=== PATIENT | male | born 1960 | race Caucasian/White ===

== ENCOUNTER 2017-12-10 16:00 | Inpatient (IN) | payer MEDICARE, OTHER ==
[~2017-12-10] VITALS: Ht 182.9 cm; Wt 76.2 kg
[2017-12-10 16:00] VITALS: BP 135/93
--- NOTE | 2017-12-10 16:35 | NUR ---
GPS/RN RECEIVED PT VIA AMBULANCE. DR GARCIA CALLED FOR THE ORDERS. PT REFUSED MRSA SWAB AND FULL BODY ASSESSMENT.
[2017-12-10] MEDS ORDERED: FOLI1TAB16 PO (16:44)
[2017-12-10] MEDS ORDERED: THIA100T13 PO (16:44)
[2017-12-10] MEDS ORDERED: OLAN20TA3 PO (16:44)
[2017-12-10] MEDS ORDERED: LORA2TAB PO (16:44)
[2017-12-10] MEDS ORDERED: MULT-213 PO (16:44)
[2017-12-10 17:00] VITALS: BP 121/81
[2017-12-10] MEDS ORDERED: MAG HYDROX/AL HYDROX/SIMETH 30 ML UDC PO PRN (17:00)
[2017-12-10] MEDS ORDERED: ACETAMINOPHEN 325 MG TABLET PO PRN (17:00)
[2017-12-10] MEDS ORDERED: MAGNESIUM HYDROXIDE 30 ML UDC PO PRN (17:00)
--- NOTE | 2017-12-10 17:09 | NUR ---
GPS RN ADMITTING NOTE: PATIENT 57 Y/O ADMITTED FROM [facility], ON 5150 HOLD FOR DTS/ DTO . PER HOLD RAPID CALL OF MALE ON SIDE OF ROAD WAVING A STICK AT [place], WAS SEEN IN MIDDLE OF STRESS. PT SAID HE WAS SCHIZOPHRENIC AND HEARING VOICES .UPON FACE TO FACE ASSESSMENT PT AGGRESSIVE ANGRY , UNCOOPERATIVE, REFUSED TO SIGN ADMITTING PAPER REFUSED MRSA NARES SWAB, REFUSED SKIN ASSESSMENT. PT HOMELESS UNABLE TO PROVIDE ANY HISTORY PT POOR HISTORIAN , A/OX3 AMBULATORY SELF CARE. DR GARCIA NOTIFIED WITH ORDERS, BELONGINGS CHECKED WILL CONTINUE MONITORING.
--- NOTE | 2017-12-10 17:41 | NUR ---
GPS RN NOTE: Lizabeth CHAWLA NOTIFIED OF ADMISSION TO RECONCILED HOME MEDICATIONS.
--- NOTE | 2017-12-10 19:30 | NUR ---
RN NOTES RECEIVED PATIENT AMBULATING IN THE HALLWAYS WITH A STEADY GAIT. AO X 3, ABLE TO MAKE NEEDS KNOWN. NO ACUTE DISTRESS NOTED. DENIES ANY PAIN AT THIS TIME. PATIENT AGITATED; STATING THAT HE IS IN THE HOSPITAL, BECAUSE DOCTORS WANT TO "DOPE" HIM UP. PATIENT WAS GIVEN REASSURANCE THAT HE IS SAFE. PATIENT WAS ENCOURAGED TO REST IN BED; JUICE WAS OFFERED . PATIENT WAS ABLE TO CALM DOWN A LITTLE BIT. SAFETY REMINDERS GIVEN. ON LOW BED WITH BILATERAL UPPER SIDE RAILS UP. PATIENT EDUCATED ON USE OF CALL BUTTON. WILL CONTINUE TO MONITOR.
[2017-12-10 20:00] VITALS: BP 121/80
[2017-12-10] MEDS: TEMAZEPAM 7.5 MG CAPSULE PO PRN (22:29)
[2017-12-11] MEDS: clonazePAM 0.5 MG TABLET PO PRN ×2 (03:43→17:14)
--- NOTE | 2017-12-11 06:24 | NUR ---
RN NOTES PATIENT ASLEEP IN BED, RESPIRATIONS EVEN. NO SIGNS OF PAIN NOTED. NEEDS ATTENDED. SAFETY PRECAUTIONS AND COMFORT MEASURES IN PLACE. WILL GIVE REPORT TO DAY SHIFT FOR CONTINUITY OF CARE.
[2017-12-11 08:03] VITALS: BP 113/72
[2017-12-11] MEDS: NICOTINE PATCH (21MG) 21 MG PATCH.TD24 TD SCH (08:17)
[2017-12-11 09:58] LABS: ALBUMIN 3.3 g/dL (3.4-5.0); BILIRUBIN,TOTAL 0.5 mg/dL (0.2-1.0); CALCIUM, SERUM 9.2 mg/dL (8.5-10.1); CREATININE 0.8 mg/dL (0.6-1.3); POTASSIUM 4.5 mmol/L (3.5-5.1)
[2017-12-11 10:03] LABS: CHOLESTEROL 118 mg/dL (<200); HDL CHOLESTEROL 43 mg/dL (40-60); LDL 82 mg/dL (0-99); TRIGLYCERIDES 93 mg/dL (30-150)
[2017-12-11 16:10] VITALS: BP 150/83
[2017-12-11 20:19] VITALS: BP 107/56
[2017-12-11] MEDS: TEMAZEPAM 7.5 MG CAPSULE PO PRN (21:48)
[2017-12-11] MEDS ORDERED: OLANZAPINE 5 MG/TAB.RAPDIS PO SCH (22:00)
[2017-12-12 08:00] VITALS: BP 101/54
[2017-12-12] MEDS: NICOTINE PATCH (21MG) 21 MG PATCH.TD24 TD SCH (09:00)
[2017-12-12] MEDS: clonazePAM 0.5 MG TABLET PO PRN (10:08)
--- NOTE | 2017-12-12 10:10 | NUR ---
GPS/RN PATIENT IS ANXIOUS, AGITATED, YELLING AND THREATENING STAFF, ADMINISTERED KLONOPIN 1 MG, WILL CONTINUE TO MONITOR.
--- NOTE | 2017-12-12 10:37 | NUR ---
Initial Discharge Plan: Pt is homeless and stated "that is where I want to be." SW will form a safe and proper discharge in collaboration with MD.
[2017-12-12 16:00] VITALS: BP 135/101
[2017-12-12 20:03] VITALS: BP 132/82
[2017-12-12] MEDS ORDERED: OLANZAPINE 5 MG/TAB.RAPDIS PO SCH (22:00)
[2017-12-12] MEDS: TEMAZEPAM 7.5 MG CAPSULE PO PRN (22:37)
[2017-12-13 08:00] VITALS: BP 112/73
[2017-12-13] MEDS: clonazePAM 0.5 MG TABLET PO PRN (09:29)
[2017-12-13] MEDS: NICOTINE PATCH (21MG) 21 MG PATCH.TD24 TD SCH (09:30)
[2017-12-13 16:00] VITALS: BP 120/81
[2017-12-13 20:29] VITALS: BP 130/74
[2017-12-13] MEDS: OLANZAPINE 5 MG/TAB.RAPDIS PO SCH (21:15)
[2017-12-13] MEDS: TEMAZEPAM 7.5 MG CAPSULE PO PRN (23:43)
[2017-12-14 08:00] VITALS: BP 116/76
[2017-12-14] MEDS: clonazePAM 0.5 MG TABLET PO PRN ×2 (08:09→13:40)
[2017-12-14] MEDS: NICOTINE PATCH (21MG) 21 MG PATCH.TD24 TD SCH (08:09)
[2017-12-14 08:23] VITALS: BP 116/76
[2017-12-14 16:04] VITALS: BP 122/68
[2017-12-14 20:00] VITALS: BP 113/60
[2017-12-14] MEDS: OLANZAPINE 5 MG/TAB.RAPDIS PO SCH ×4 (21:27→23:49)
--- NOTE | 2017-12-14 21:33 | NUR ---
PATIENT REFUSED HIS OLANZAPINE 20 MG PO, STATED, " I DON'T NEED IT, I'M FINE."
[2017-12-15 08:22] VITALS: BP 126/76
[2017-12-15] MEDS: clonazePAM 0.5 MG TABLET PO PRN (08:54)
--- NOTE | 2017-12-15 08:57 | NUR ---
GPS/RN-NOTES NOTED PATIENT PACING IN HIS ROOM AND IN THE HALLWAY TALKING TO SELF VERY LOUD. REDIRECTED AND OFFERED KLONOPIN AND AGREES. KLONOPIN 1MG P.O GIVEN PRN ORDER. WILL CONT. MONITORING FOR SAFETY AND BEHAVIOR. PATIENT REFUSED NICOTINE PATCH. STATED" YOU CAN NOT STOP ME FROM SMOKING" EXPLAINED HOSPITAL POLICIES OF NOT A SMOKING FACILITY BUT PATIENT STILL REFUSE. OFFERED X3.
[2017-12-15] MEDS: NICOTINE PATCH (21MG) 21 MG PATCH.TD24 TD SCH (09:00)
[2017-12-15] MEDS: OLANZAPINE 5 MG/TAB.RAPDIS PO SCH ×2 (15:05→20:07)
[2017-12-15 16:00] VITALS: BP 124/83
[2017-12-15] MEDS ORDERED: OLANZAPINE 5 MG/TAB.RAPDIS PO SCH (17:00)
[2017-12-15 20:00] VITALS: BP 125/72
[2017-12-16 08:18] VITALS: BP 120/69
[2017-12-16] MEDS: OLANZAPINE 5 MG/TAB.RAPDIS PO SCH ×2 (08:40→21:00)
[2017-12-16] MEDS: NICOTINE PATCH (21MG) 21 MG PATCH.TD24 TD SCH (09:00)
[2017-12-16 16:00] VITALS: BP 124/64
--- NOTE | 2017-12-16 18:26 | NUR ---
RN-CO: Patient is intimidating staff, threatening physical harm to RNs,CNAs , cursing, screaming and trying to AWOL. Paged Dr Bassett. Patient also refused PO anti agitation. Awaiting to call back.
--- NOTE | 2017-12-16 18:31 | NUR ---
RN-CO: Patient also hit the wall.
--- NOTE | 2017-12-16 18:36 | NUR ---
RN-CO: DR URIBE CALLED BACK AND ORDERED ATIVAN 2MG IM, HALDOL 10 MG IM , BENADRYL 50 MG IM STAT. PATIENT REMAIN YELLING AT STAFF AND THREATENING PHYSICAL HARM.CALLED SECURITY FOR ASSISTANCE.
[2017-12-16] MEDS ORDERED: LORAZEPAM INJ 2 MG/ML VIAL IV ONE (19:00)
[2017-12-16] MEDS ORDERED: diphenhydrAMINE HCL 50 MG/ML VIAL IV ONE (19:00)
[2017-12-16] MEDS ORDERED: HALOPERIDOL LACTATE INJ 5 MG/ML VIAL IM ONE (19:00)
--- NOTE | 2017-12-16 19:27 | NUR ---
PATIENT IS RESTING IN BED AT THIS TIME, TALKS TO SELF, COMBATIVE, UNCOOPERATIVE, LESS AGITATED AT THIS TIME.INTERACTS WHEN ENGAGED. GRABBED SOME JUICE FOR A DRINK.
--- NOTE | 2017-12-16 19:57 | NUR ---
PATIENT IS RESTING QUIETLY IN BED, SLEEPING, LYING ON HIS LEFT SIDE. RESPIRATION EVEN, BREATHING PATTERN NON-LABORED. NO APPARENT DISTRESS NOTED. WILL CONTINUE TO MONITOR Q 15 MINS. TO MAINTAIN SAFETY.
[2017-12-16 20:00] VITALS: BP 143/69
--- NOTE | 2017-12-16 20:38 | NUR ---
PATIENT REMAINS ASLEEP. RESPIRATION EVEN, BREATHING PATTERN NON-LABORED, NO ACUTE DSITRESS NOTED. WILL CONTINUE TO MONITOR Q 15 MINS. TO MAINTAIN SAFETY.
--- NOTE | 2017-12-16 21:31 | NUR ---
PATIENT FAST ASLEEP, RESPIRATION EVEN, BREATHING PATTERN NON-LABORED. NO ACUTE DISTRESS NOTED. WILL CONTINUE TO MONITOR Q 15 MINS. TO MAINTAIN SAFETY.
--- NOTE | 2017-12-16 22:42 | NUR ---
Patient still fast asleep, no acute distress noted. patient on supine position. Will continue to monitor q 15 mins. to maintain safety.
--- NOTE | 2017-12-16 23:18 | NUR ---
UNABLE TO ADMINISTER NIGHT MEDS, PATIENT STILL FAST ASLEEP. NO ACUTE DISTRESS NOTED. WILL CONTINUE TO MONITOR.
--- NOTE | 2017-12-17 03:21 | NUR ---
PAIENT REMAINS SLEEPING WITH NO ACUTE DISTRESS NOTED. WILL CONTINUE TO MONITOR Q 15 MINS. TO MAINTAIN SAFETY.
--- NOTE | 2017-12-17 06:45 | NUR ---
PATIENT WOKE UP, AND WALKED TO THE DINING AREA. GREETED HIM WITH A GOOD MORNING, PATIENT DID NOT RESPOND, TURNED HIS FACE ON THE OTHER SIDE. WILL CONTINUE TO MONITOR Q 15 MINS. FOR SAFETY AND BEHAVIOR.
[2017-12-17 08:00] VITALS: BP 113/60
[2017-12-17] MEDS: clonazePAM 0.5 MG TABLET PO PRN ×2 (08:40→19:33)
[2017-12-17] MEDS: OLANZAPINE 5 MG/TAB.RAPDIS PO SCH ×2 (08:40→20:00)
[2017-12-17] MEDS: NICOTINE PATCH (21MG) 21 MG PATCH.TD24 TD SCH (09:00)
--- NOTE | 2017-12-17 19:33 | NUR ---
GPS RN NOTES: PATIENT IS VERY AGITATED, ANXIOUS, UNABLE TO SIT STILL. VSS. ADMINISTERED KLONOPIN 1MG PO ORDERED. WILL CONTINUE TO MONITOR [id number] FOR SAFETY AND BEHAVIOR.
[2017-12-17 20:01] VITALS: BP 116/82
--- NOTE | 2017-12-17 21:00 | NUR ---
GPS RN NOTES: PATIENT REFUSED WEEKLY SKIN BODY ASSESSMENT. EXPLAINED RISKS AND BENEFITS. PATIENT STILL REFUSED.
[2017-12-18 08:00] VITALS: BP 142/69
[2017-12-18] MEDS: clonazePAM 0.5 MG TABLET PO PRN (08:31)
[2017-12-18] MEDS: OLANZAPINE 5 MG/TAB.RAPDIS PO SCH ×3 (08:32→21:34)
[2017-12-18] MEDS: NICOTINE PATCH (21MG) 21 MG PATCH.TD24 TD SCH (08:35)
--- NOTE | 2017-12-18 08:35 | NUR ---
GPS RN NOTES: PATIENT IS ANXIOUS,VSS. ADMINISTERED KLONOPIN 1MG PO ORDERED. WILL CONTINUE TO MONITOR [id number] FOR SAFETY AND BEHAVIOR.
[2017-12-18 16:00] VITALS: BP 128/80
--- NOTE | 2017-12-18 19:30 | NUR ---
GPS RN NOTES, RECEIVED PATIENT IN BED ALERT AND ORIENTED, ABLE TO COMMUNICATE NEEDS AND CONCERNS, NO SOB/ACUTE DISTRESS, AMBULATORY AND SELF MOTIVATED TO PERFORM OWN CARE, NO BEHAVIORAL PROBLEMS NOTED AT THIS TIME, ALL NEEDS PROVIDED, WILL CONTINUE TO MONITOR CLOSELY.
[2017-12-18 19:36] VITALS: BP 146/85
--- NOTE | 2017-12-18 22:00 | NUR ---
GPS RN NOTES, PATIENT REFUSED ZYPREXA SCHEDULED AT 2200, WILL CONTINUE TO MONITOR CLOSELY.
--- NOTE | 2017-12-19 06:49 | NUR ---
GPS RN CLOSING NOTES, PATIENT IN BED, AWAKE, IN THE HALLWAY AT THIS TIME TALKING TO ANOTHER PATIENT, ABLE TO COMMUNICATE NEED AND CONCERNS, BREATHING EVEN AN UNLABORED NO BEHAVIORAL PROBLEMS, AGGRESSIVITY AGITATION NOTED AT THIS TIME, NO SIGNIFICANT CHANGE IN BEHAVIOR AND [place] THROUGHOUT THE SHIFT, ALL NEEDS PROVIDED, WILL ENDORSE TO ONCOMING SHIFT NURSE.
[2017-12-19 08:00] VITALS: BP 110/76
[2017-12-19] MEDS: NICOTINE PATCH (21MG) 21 MG PATCH.TD24 TD SCH (09:00)
[2017-12-19] MEDS: OLANZAPINE 5 MG/TAB.RAPDIS PO SCH (09:14)
--- NOTE | 2017-12-19 09:18 | NUR ---
Discharge Plan: Pt is being discharged at 10:00am to [facility] [address] [place] [address]. Bus tokens were provided to pt. Pts mood and affect was anxious and cooperative. Pt appeared to be happy to be discharged. Pt denied Suicidal/homicidal ideations. For smoking cessation, patient was referred to the [employer] or [employer] [id number]. Patient was also referred to the [employer] meeting on [address] [facility] [address] and will attend on Tuesday December 26, 2017 at 7:00 PM. Pt was provided with referrals to [facility] [address] [facility] [address] where pt can walk in Monday-Monday 7:30am-8:30pm and encouraged to follow up with [facility] [address] [facility] [id number] . Pt is able to walk in Monday-Monday from 8:30am-3:30pm. The multidisciplinary exitcare form was done, printed, signed, and given to the patient.
--- NOTE | 2017-12-19 10:25 | NUR ---
DISCHARGE NOTE: PATIENT LEFT THE UNIT AT 1000 WITH KAYLA TO THE BUS STATION. PATIENT IS ALERT AND ORIENTED X 3. DENIES SI/HI DURING DISCHARGE. DENIES COMMAND HALLUCINATIONS, AH, VH. JOSE GAVE DISCHARGE ORDER, DISCONTINUE HOLD, AND MEDS. FURNACE OPERATOR MADE AWARE OF DISCHARGE AND AGREES. PATIENT DENIES SKIN ASSESSMENT. PATIENT LEFT WITH BELONGINGS. EXIT PAPERS SIGNED AND EXPLAINED AT DISCHARGE.
== END 2017-12-19 10:00 | disposition home or self-care (01) | DRG 885 ==
LOC: GPS 16:00
PROVIDERS: ADMIT Psychiatry & Neurology Psychiatry; ATTEND Psychiatry & Neurology Psychiatry
DX: F25.9 Schizoaffective disorder, unspecified (principal); F29 Unspecified psychosis not due to a substance or known physiological condition; F10.20 Alcohol dependence, uncomplicated; F19.10 Other psychoactive substance abuse, uncomplicated; F41.9 Anxiety disorder, unspecified; Z87.891 Personal history of nicotine dependence; Z79.899 Other long term (current) drug therapy; Z59.0 Homelessness; Y90.9 Presence of alcohol in blood, level not specified
CPT/HCPCS: 36415; 80053-TC; 80061-TC; J1200; J1630; J2060